=== PATIENT | male | born 1995 ===

== ENCOUNTER 2017-11-26 03:57 | Emergency (ER) | payer SELFPAY ==
--- NOTE | 2017-11-26 04:19 | C.PDOC ---
History Of Present Illness 22 year old male presents to the ED for evaluation of alcohol intoxication. Patient states he was vomiting at home, admits to drinking alcohol tonight. Patient denies SI/HI, hallucinations, other medical complaints. Chief Complaint (Nursing): Substance Abuse History Per: Patient History/Exam Limitations: intoxication Onset/Duration Of Symptoms: Hrs Current Symptoms Are (Timing): Still Present Suicide/Self Injury Attempted (Context): None Modifying Factor(s): Alcohol Associated Symptoms: denies: Depression, Suicidal Thoughts, Suicidal Plan Involuntary Hold By: None Recent travel outside of the [place]: No Additional History Per: Patient, EMS Past Medical History Reviewed: Historical Data, Nursing Documentation, Vital Signs Vital Signs: Last Vital Signs Temp 97.9 F 11/26/17 04:10 Pulse 117 H 11/26/17 04:10 Resp 20 11/26/17 04:10 BP 146/79 11/26/17 04:10 Pulse Ox 96 11/26/17 04:10 - Medical History PMH: No Chronic Diseases Surgical History: No Surg Hx Family History: States: Unknown Family Hx - Social History Hx Tobacco Use: No Hx Alcohol Use: Yes Hx Substance Use: No Review Of Systems Constitutional: Negative for: Fever, Chills Cardiovascular: Negative for: Chest Pain Respiratory: Negative for: Shortness of Breath Gastrointestinal: Negative for: Nausea, Vomiting Skin: Negative for: Rash Neurological: Negative for: Weakness, Numbness Psych: Negative for: Depression, Suicidal ideation Physical Exam - Physical Exam Appears: Non-toxic, No Acute Distress, Other (AOB) Skin: Normal Color, Warm, Dry Head: Atraumatic, Normacephalic Eye(s): bilateral: Normal Inspection Oral Mucosa: Moist Neck: Normal ROM, Supple Chest: Symmetrical Cardiovascular: Rhythm Regular Respiratory: Normal Breath Sounds, No Rales, No Rhonchi, No Wheezing Gastrointestinal/Abdominal: Soft, No Tenderness, No Guarding, No Rebound Extremity: Normal ROM, No Tenderness, No Swelling Neurological/Psych: Oriented x3, Normal Speech Gait: Steady ED Course And Treatment Pulse Ox Interpretation: Normal Medical Decision Making Medical Decision Making: Patient refused blood work. Disposition Counseled Patient/Family Regarding: Diagnosis - Disposition Referrals: [facility] [Outside] Disposition: HOME/ ROUTINE Disposition Time: 06:00 Condition: STABLE Instructions: Alcohol Abuse and Alcoholism (DC) Forms: [facility] ([place]) - POA Present On Arrival: None - Clinical Impression Clinical Impression: Alcohol abuse - Scribe Statement The provider has reviewed the documentation as recorded by the Scribe Romeo Pena All medical record entries made by the Scribe were at my direction and personally dictated by me. I have reviewed the chart and agree that the record accurately reflects my personal performance of the history, physical exam, medical decision making, and the department course for this patient. I have also personally directed, reviewed, and agree with the discharge instructions and disposition.
[2017-11-26 04:22] VITALS: BP 146/79; PULSE 117; RESP 20; TEMP 97.9; O2SAT 96
== END 2017-11-26 06:16 | disposition home or self-care (01) ==
LOC: C.ER 03:57
DX: F10.129 Alcohol abuse with intoxication, unspecified (principal)